=== PATIENT | male | born 1975 | race Caucasian/White ===

== ENCOUNTER → 2018-09-28 | Outpatient (CLI) | payer OTHER | LOC: FIMAGING 11:28 | PROVIDERS: ATTEND Family Medicine | DX: R22.31 Localized swelling, mass and lump, right upper limb (principal); I82.409 Acute embolism and thrombosis of unspecified deep veins of unspecified lower extremity; I10 Essential (primary) hypertension ==

== ENCOUNTER → 2018-10-04 | Outpatient (CLI) | payer OTHER | LOC: FIMAGING 10:52 | PROVIDERS: ATTEND Family Medicine | DX: I82.601 Acute embolism and thrombosis of unspecified veins of right upper extremity (principal) ==

== ENCOUNTER 2018-10-10 13:04 | Day surgery (SDC) | payer OTHER ==
[2018-10-10] MEDS ORDERED: IOPAMIDOL (ISOVUE-300) 100 ML BTL ONE ×2 (13:29→14:39)
[2018-10-10] MEDS ORDERED: ONDANSETRON 4 MG/2 ML VIAL IVP PRN (14:30)
[2018-10-10] MEDS ORDERED: OXYCODONE/APAP 5/325 TAB PO PRN (14:30)
--- NOTE | 2018-10-10 14:34 | PDRADPRE ---
Radiology History & Physical Indication for procedure: other (RUE thrombus - Venogram to eval for thoracic outlet syndrome, possible angioplasty) Home medications: Xarelto 15mg (*) 15 mg PO BID 10/07/18 [Last Taken 10/07/18] Allergies/Adverse Reactions: No Known Allergies Allergy (Unverified 10/10/18 14:30) Mental status: A&Ox3 Heart exam: regular rate and rhythm Lungs exam: clear to auscultation Mallampati Score: Class 1
--- NOTE | 2018-10-10 14:36 | PDRADPN ---
Radiology Procedure Note Date of Procedure: 10/10/18 Radiologist: Akil Rapp Anesthesia: Local (Specify) Pre-op Diagnosis: RUE thrombus Post-op Diagnosis: RUE thrombus Indication: RUE thrombus Procedure: RUE venogram, angioplasty Finding(s): Occlusive thrombus in right subclavian vein with extensive thyrocervical collaterals. This persisted despite angioplasty. Patient declined further intervention at this time, and will continue anticoagulation. Recommend surgical consultation for venous thoracic outlet syndrome, and continued anticoagulation with current VTE regimen per hematology. Inf/Abcess present in the surg proc area at time of surgery?: No
[2018-10-10 15:48] VITALS: BP 124/84
== END 2018-10-10 15:49 | disposition home or self-care (01) ==
LOC: FIMAGING 13:04
PROVIDERS: ATTEND Radiology Vascular & Interventional Radiology
DX: I82.B21 Chronic embolism and thrombosis of right subclavian vein (principal)
CPT/HCPCS: 36005; 37248; 75820; 76937; C1769; C1894; C1725; J1644; Q9967

== ENCOUNTER → 2018-12-11 | Day surgery (SDC) | payer OTHER ==
[~2018-12-11] MED LIST: IOPAMIDOL (ISOVUE-300) 100 ML BTL ONE
== END | disposition home or self-care (01) ==
LOC: FIMAGING 09:41
PROVIDERS: ATTEND Radiology Vascular & Interventional Radiology
PROC: B51M1ZZ Fluoroscopy of Right Upper Extremity Veins using Low Osmolar Contrast (ICD-10-PCS; principal; 2018-12-11)
DX: I87.1 Compression of vein (principal); G54.0 Brachial plexus disorders
CPT/HCPCS: J1644; Q9967

== ENCOUNTER 2019-01-06 05:52 | Inpatient (IN) | payer OTHER ==
[2019-01-06] MEDS ORDERED: THROMBIN (BOVINE) 5,000 UNIT VIAL TP ONE (06:11)
[2019-01-06] MEDS ORDERED: BUPIVACAINE 0.5% 30 ML SDV ONE (06:11)
[2019-01-06] MEDS ORDERED: ceFAZolin 2 GM/DEXTROSE 100 ML IV ONE (06:15)
[2019-01-06] MEDS ORDERED: LR 1,000 ML IV ONE (06:18)
[2019-01-06] MEDS ORDERED: MIDAZOLAM 2 MG/2 ML VIAL IVP ONE (06:53)
--- NOTE | 2019-01-06 06:54 | PDANEPAE ---
ANE Past Medical History - Cardiovascular History Hx Hypertension: No Hx Arrhythmias: No Hx Chest Pain: No Hx Coronary Artery / Peripheral Vascular Disease: No Hx CHF / Valvular Disease: No Hx Palpitations: No Cardiovascular History Comment: thoracic outlet syndrome - Pulmonary History Hx COPD: No Hx Asthma/Reactive Airway Disease: No Hx Recent Upper Respiratory Infection: No Hx Oxygen in Use at Home: No Hx Sleep Apnea: No Sleep Apnea Screening Result - Last Documented: Negative - Neurologic History Hx Cerebrovascular Accident: No Hx Seizures: No Hx Dementia: No - Endocrine History Hx Diabetes: No Hypothyroid: No Hyperthyroid: No Obesity: no - Renal History Hx Renal Disorders: No - Liver History Hx Hepatic Disorders: No - Neurological & Psychiatric Hx Hx Neurological and Psychiatric Disorders: No - Cancer History Hx Cancer: No - Congenital Disorder History Hx Congenital Disorders: No - GI History GERD: no Hx Gastrointestinal Disorders: Yes Gastrointestinal History Comment: occ constipation with traveling - Other Health History Other Health History: none - Chronic Pain History Chronic Pain: No - Surgical History Prior Surgeries: acl surgery- right ANE Review of Systems Review of Systems: - Exercise capacity Exercise capacity: >=4 METS METS (RN): 5 METS ANE Patient History - Allergies Allergies/Adverse Reactions: No Known Allergies Allergy (Verified 01/01/19 11:50) - Home Medications Home Medications: Rivaroxaban [Xarelto 10mg (*)] 20 mg PO DAILY 10/07/18 [Last Taken 01/03/19] Acetaminophen [Tylenol ES 500 mg (*)] 500 mg PO DAILY PRN 01/01/19 [Last Taken Unknown] Multivitamins [Multivitamin (*)] 1 each PO DAILY 01/01/19 [Last Taken 01/02/19] - NPO status NPO Since - Liquids (Date): 01/06/19 NPO Since - Liquids (Time): 04:15 NPO Since - Solids (Date): 01/05/19 NPO Since - Solids (Time): 19:00 - Anes Hx Anes Hx: no prior problems - Smoking Hx Smoking Status: Never smoked - Alcohol Use Alcohol Use: Occasionally - Family Anes Hx Family Anes Hx: neg - N/A Family Hx Anesthesia Complications: none ANE Labs/Vital Signs - Vital Signs Blood Pressure: 128/87 Heart Rate: 72 Respiratory Rate: 18 O2 Sat (%): 974 Height: 190.5 cm Weight: 104.326 kg ANE Physical Exam - Airway Neck exam: FROM Mallampati Score: Class 2 Mouth exam: normal dental/mouth exam - Pulmonary Pulmonary: no respiratory distress, no rales or rhonchi, clear to auscultation - Cardiovascular Cardiovascular: regular rate and rhythym, no murmur, rub, or gallop - ASA Status ASA Status: II ANE Anesthesia Plan Anesthesia Plan: general endotracheal anesthesia Total IV Anesthesia: No
--- NOTE | 2019-01-06 07:03 | PDHPUP ---
History & Physical Update H&P update statement: This history and physical update is based on an assessment of the patient which was completed after admission or registration (within 24 hours), but prior to the surgery/procedure. H&P update: H&P reviewed & patient examined, no change in patient's condition since H&P completed
[2019-01-06] MEDS ORDERED: fentaNYL 100 MCG/2 ML INJ ONE ×4 (07:17→09:51)
[2019-01-06] MEDS ORDERED: PROPOFOL 200 MG/20 ML VIAL ONE (07:17)
[2019-01-06] MEDS ORDERED: ROCURONIUM 50 MG/5 ML VIAL ONE ×2 (07:18→07:56)
[2019-01-06] MEDS ORDERED: ONDANSETRON 4 MG/2 ML VIAL ONE ×2 (07:19→09:32)
[2019-01-06] MEDS ORDERED: DEXAMETHASONE 4 MG/ML VIAL ONE (07:20)
[2019-01-06] MEDS ORDERED: LIDOCAINE 2% 2 ML INJ ONE ×2 (07:22)
[2019-01-06] MEDS ORDERED: KETOROLAC 30 MG/1 ML SDV ONE (07:48)
[2019-01-06] MEDS ORDERED: hydrALAZINE 20 MG/ML VIAL ONE (08:02)
[2019-01-06] MEDS ORDERED: NEOSTIGMINE METHYLSULFATE 10 MG/10 ML MDV ONE (08:58)
[2019-01-06] MEDS ORDERED: GLYCOPYRROLATE 0.2 MG/1 ML VIAL ONE ×3 (08:58)
--- NOTE | 2019-01-06 09:31 | POSTOPPROG ---
Post Op Note Date of Operation: 01/06/19 Surgeon: Joel Luna [employer] Am[employer]ibious Vehicle Officer: Sandra Pichardo Anesthesiologist: Sarabjit Justin Anesthesia: GET(General Endotracheal) Pre-op Diagnosis: TOS, RUE DVT Post-op Diagnosis: same Procedure: transaxillary right first rib resection Findings: thick scalene muscles, good space p rib removal, no air leak/ptx Inf/Abcess present in the surg proc area at time of surgery?: No EBL: Minimal Complications: none Bowel Protocol: N/A Clean Closure Performed: N/A Specimen(s): 1st rib to path
[2019-01-06] MEDS ORDERED: HYDROmorphONE/DILAUDID 1 MG/ML INJ IVP PRN (09:33)
[2019-01-06] MEDS ORDERED: ONDANSETRON 4 MG/2 ML VIAL IVP PRN ×2 (09:33→09:35)
[2019-01-06] MEDS ORDERED: LR 500 ML IV PRN (09:35)
[2019-01-06] MEDS ORDERED: fentaNYL 100 MCG/2 ML INJ IVP PRN (09:35)
[2019-01-06] MEDS ORDERED: PHENYLEPHRINE HCL 100 MCG/ML SYR IVP PRN (09:35)
[2019-01-06] MEDS ORDERED: PROMETHAZINE HCL 25 MG/ML INJ IVP PRN (09:35)
[2019-01-06] MEDS ORDERED: ACETAMINOPHEN 500 MG TAB PO PRN (09:35)
[2019-01-06] MEDS ORDERED: NALOXONE HCL 0.4 MG/ML INJ IVP PRN (09:35)
[2019-01-06] MEDS ORDERED: oxyCODONE IR 5 MG TAB PO PRN (09:35)
[2019-01-06] MEDS ORDERED: HYDROCODONE/APAP 5/325 TAB PO PRN (09:35)
--- NOTE | 2019-01-06 09:37 | POSTANESTH ---
Post Anesthetic Evaluation Cardiovascular Status: Normal, Stable Respiratory Status: Normal, Stable Level of Consciousness/Mental Status: Can Participate in Eval Pain Control: Adequate, Prn Tx Ordered Nausea/Vomiting Control: Adequate, Prn Tx Ordered Complications Possibly Related to Anesthesia: None Noted
[2019-01-06] MEDS: OXYCODONE/APAP 5/325 TAB PO PRN ×4 (13:16→20:42)
--- NOTE | 2019-01-06 14:41 | PDMN ---
Medical Necessity Medical necessity: Change to inpt as of 01/06/19, meets inpt criteria per MD order and Thoracic Surgery GRG, Excision first and/or cervical rib, MCR IP only list, 1 day. 43 y/o w/venous thoracic outlet syndrome and RUE DVT admitted for transaxillary R 1st rib resection and post-op care.
[2019-01-06] MEDS: DOCUSATE SODIUM 100 MG CAP PO SCH ×2 (14:52→20:06)
[2019-01-06] MEDS ORDERED: MELATONIN 3 MG TAB PO PRN (21:16)
[2019-01-06] MEDS ORDERED: ACETAMINOPHEN 325 MG TAB PO PRN (21:16)
[2019-01-06] MEDS ORDERED: traMADol 50 MG TAB PO PRN (21:16)
[2019-01-07] MEDS: OXYCODONE/APAP 5/325 TAB PO PRN ×3 (03:22→08:21)
[2019-01-07 07:19] VITALS: BP 107/68
[2019-01-07] MEDS: DOCUSATE SODIUM 100 MG CAP PO SCH (08:15)
[2019-01-07] MEDS ORDERED: ENOXAPARIN 40 MG/0.4 ML SYR SC SCH (09:00)
--- NOTE | 2019-01-08 22:03 | GOP ---
[f rep st] OPERATIVE REPORT DATE OF OPERATION: 01/06/2019 SURGEON: Joel Luna MD PROGRAM COORDINATOR EXECUTIVE EDUCATION: FLACO Duong. ANESTHESIOLOGIST: Parisa Justin DO. PREOPERATIVE DIAGNOSIS: Thoracic outlet syndrome with subclavian stenosis. POSTOPERATIVE DIAGNOSIS: Thoracic outlet syndrome with subclavian stenosis. PROCEDURE PERFORMED: Right transaxillary first rib resection. FINDINGS: Patient was found to have a large first rib. DESCRIPTION OF PROCEDURE: Patient was taken to the operating room where he received a satisfactory g eneral anesthetic by Dr. Justin. He was placed in the left lateral decubitus position at a 45-d egrees angle after induction of general endotracheal anesthesia. He was prepped and draped in the [facility] sterile fashion. His right arm was suspended from an armboard. A curvilinear incision was made at the base of the axilla and dissection extended down through the subcutaneous tissue down to the ch est wall. The thoracodorsal vessels were doubly ligated and divided, and dissection extended up the chest wall to the apex of the axilla and the first rib. The intercostal brachial cutaneous nerve was identified and retracted laterally and spared from injury. Exposure, however, was somewhat difficul t. The bottom edge of the first rib was identified and was exposed using electrocautery and then a C obb elevator to free up off the pleura. The top of the rib was exposed. The anterior scalene muscle was hooked with a right angle and divided with electrocautery. Dissection along the upper edge exte nded well back behind the neural bundle as it did on the inferior side of the rib. Anteriorly, the r ib was dissected up to the cartilage interface. The subclavian tendon was divided with electrocauter y. Compressive tissue around the vein was removed. After the exposure was complete, the rib was div ided anteriorly and posteriorly and then shortened further with rongeurs and smoothed off with a rasp . Specimen was sent to Pathology. Hemostasis was assured. The wound was tested under water with no evidence of any air leak. Topical thrombin was placed in the cavity, and the wound was closed in la yers using 3-0 Vicryl for the subcutaneous tissue and 4-0 Monocryl subcuticular stitch for the skin. All layers were infiltrated with Marcaine. He tolerated the procedure well and was taken to the recovery room in good condition. There were no complications. /[id number]/MODL
== END 2019-01-07 11:17 | disposition home or self-care (01) | DRG 42 ==
LOC: F3E 05:52 → OBSVTOIN 14:33
PROVIDERS: ADMIT Surgery; ATTEND Surgery
PROC: 01N30ZZ Release Brachial Plexus, Open Approach (ICD-10-PCS; principal; 2019-01-06 07:15)
DX: G54.0 Brachial plexus disorders (principal)
CPT/HCPCS: J0360; J0690; J1100; J1650; J1885; J2250; J2405; J2704; J3010

== ENCOUNTER → 2019-02-14 | Day surgery (SDC) | payer OTHER | LOC: FIMAGING 14:50 ==